=== PATIENT | male | born 1945 | race Caucasian/White ===

== ENCOUNTER → 2018-07-08 | Outpatient (CLI) | payer MEDICARE, BC ==
--- NOTE | 2018-07-09 09:50 | ECHOF ---
Referral Reason:I50.32 Chronic Diastolic (Congestive) Heart Failur MEASUREMENTS -------- HEIGHT: 175.3 cm WEIGHT: 131.5 kg BP: 135/77 RVIDd: 3.7 cm (< 3.3) IVSd: 1.4 cm (0.6 - 1.1) LVIDd: 3.3 cm (3.9 - 5.3) LVPWd: 1.5 cm (0.6 - 1.1) IVSs: 1.9 cm LVIDs: 2.1 cm LVPWs: 1.7 cm LA Diam: 4.0 cm (2.7 - 3.8) LAESV Index (A-L): 22.87 ml/m Ao Diam: 4.3 cm (2.0 - 3.7) AV Cusp: 1.9 cm (1.5 - 2.6) EPSS: 0.4 cm MV E Angel: 0.45 m/s MV DecT: 378 ms MV A Angel: 0.78 m/s MV E/A Ratio: 0.58 RAP: 5.00 mmHg RVSP: 22.74 mmHg MV EF SLOPE: 31.52 mm/s (70 - 150) MV EXCURSION: 1.07 cm (> 18.000) FINDINGS -------- Sinus rhythm. This was a technically difficult study with suboptimal views. The left ventricular size is normal. There is moderate concentric left ventricular hypertrophy. O verall left ventricular systolic function is normal with, an EF between 60 - 65 %. The right ventricle is mildly enlarged. Normal LA size by volume 22+/-6 ml/m2. The right atrium is normal in size. 5 ml of Lumason was utilized for enhancement of images. Aortic valve is trileaflet and is mildly thickened. The mitral valve is normal. Mild tricuspid regurgitation present. Right ventricular systolic pressure is normal at < 35 mmHg. The pulmonic valve was not well visualized. The aortic root is dilated measuring 4.3cm. IVC Not well visulized. There is no pericardial effusion. CONCLUSIONS -------- 1. Sinus rhythm. 2. This was a technically difficult study with suboptimal views. 3. The left ventricular size is normal. 4. There is moderate concentric left ventricular hypertrophy. 5. Overall left ventricular systolic function is normal with, an EF between 60 - 65 %. 6. The right ventricle is mildly enlarged. 7. Normal LA size by volume 22+/-6 ml/m2. 8. The right atrium is normal in size. 9. 5 ml of Lumason was utilized for enhancement of images. 10. Aortic valve is trileaflet and is mildly thickened. 11. The mitral valve is normal. 12. Mild tricuspid regurgitation present. 13. Right ventricular systolic pressure is normal at < 35 mmHg. 14. The pulmonic valve was not well visualized. 15. The aortic root is dilated measuring 4.3cm. 16. IVC Not well visulized. 17. There is no pericardial effusion. [employer]ARING [employer]ENT: Lisa Bowen RDCS
== END ==
LOC: RADECHMAIN 11:11
PROVIDERS: ATTEND Internal Medicine Geriatric Medicine
DX: I50.32 Chronic diastolic (congestive) heart failure (principal)
CPT/HCPCS: C8929; Q9950; 93306

== ENCOUNTER → 2018-12-08 | Outpatient (CLI) | payer MEDICARE, BC ==
--- NOTE | 2018-12-08 15:44 | CONS ---
CONSULTATION REASON FOR EVALUATION: Chronic hypersomnia. A 72-year-old male patient coming in with excessive tiredness and sleepiness during the day. He has been having difficulty in sleeping in bed. He goes to bed. However few hours after going to bed. He goes to a recliner in the living room and spends some time most of the night there. He is waking up on off in the middle of the night and utilize the bathroom a lot. He goes to bed. He wakes up. He wakes up from sleep at around 8:00 am he takes naps throughout the day. His sleep has become extremely fragmented. He is averaging around 7-8 hours of sleep. However despite that he is very much tired and sleepy and he has fallen asleep while driving. His [place] score is 18. He snores. He quits breathing. He is obese and has gained more than 50 pounds over the past 5 years. No restlessness lower extremities no depression no head trauma. No substance abuse. No grinding of the teeth. No sleepwalking or sleep talking. PAST MEDICAL HISTORY: Obesity diabetes mellitus, type 2. 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 SURGICAL HISTORY: Surgical history knee replacement, bilateral knee arthroscopy and rotator cuff surgery. DRUG ALLERGIES: Not known. OUTPATIENT MEDICATION LIST: Includes a K-Dur 20 mg daily Lasix 40 mg p.o. daily. Aspirin 325 a day. Mag citrate 5 mg p.o. daily Lipitor 40 daily Janumet tab a day. Procardia XL 30 daily losartan 25 daily Lantus insulin 70 units daily. SOCIAL HISTORY: Ex-smoker. No history of alcohol. No history of IV drugs. 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 FAMILY HISTORY: Father had diabetes mellitus and of complications of diabetes. Mother had CAD questionable cancer that she from an [place]. Family history is negative for sleep apnea. REVIEW OF SYSTEMS: A 14-point review of system was done. Positive for weight gain. He is a mouth breather. He has constant nasal plugging in conjunction, no grinding of the teeth. No he has nocturia wakes up with dry mouth. No palpitation no heartburn or chest pain. No shoulder or chest pain. No shortness of breath with activity. No dyspnea at rest. No orthopnea no paroxysmal nocturnal dyspnea. No leg swelling. No head trauma. No meningitis or encephalitis. 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 PHYSICAL EXAMINATION: BP is 142/74, pulse 97, respirations 16, temperature 97.8 saturation 95% on room air. Height is 5 feet 9 inches, weight is 300 and BMI is 40.7. [place] Score is at 18 neck size is 20 inches. GENERAL APPEARANCE: Obese, calm, comfortable. Head and neck normocephalic. NECK: Supple. Do note there is no JVD. No goiter neck mass. Mallampati class IV. LUNGS: Clear to auscultation. HEART: Heart sounds are regular rate and rhythm. Normal S1, S2. No murmurs. ABDOMEN: Soft, nontender. No organomegaly. EXTREMITIES: No edema. No cyanosis or clubbing. NEUROLOGIC: She is alert and oriented. No focal neurological deficits. PSYCHIATRIC: Negative for anxiety or depression. SKIN: negative for any wounds or ulceration. IMPRESSION: 1. Chronic hypersomnia [place] score of 18. #2 loud snoring. 2. Sleep fragmentation along with poor sleep hygiene measures. The patient is unable to sleep in bed and he is spending a lot of time in the living room on recliner. 3. Nocturia. 4. Obesity with a BMI of 48.7. 5. Diabetes mellitus type 2. 6. Hypertension. 7. History of cerebrovascular accident. 8. Hyperlipidemia. 9. History of non-Hodgkin's lymphoma. PLAN: High suspicion for obstructive sleep apnea would like to gradually transition patient back to bed. As he is spending lot of time sleeping and culture recliner in his living room. Would like to get a screening polysomnogram to assess the presence of obstructive sleep apnea and treating and treat him accordingly. I would like to encourage weight loss. I would like to implement good sleep hygiene measures and this was explained to him at length and he verbalized that he understood all these things discussed with him in terms of improving her sleep hygiene measures. We will continue to follow. dried. MMODL / IJN: [id number] /
== END | disposition home or self-care (01) ==
LOC: SLEEP 13:39
PROVIDERS: ATTEND Internal Medicine Critical Care Medicine
DX: G47.19 Other hypersomnia (principal); E66.9 Obesity, unspecified; E11.9 Type 2 diabetes mellitus without complications; I10 Essential (primary) hypertension; E78.5 Hyperlipidemia, unspecified; R35.1 Nocturia; Z68.42 Body mass index [BMI] 45.0-49.9, adult; Z86.73 Personal history of transient ischemic attack (TIA), and cerebral infarction without residual deficits; Z85.72 Personal history of non-Hodgkin lymphomas; Z87.891 Personal history of nicotine dependence; Z79.899 Other long term (current) drug therapy; Z79.82 Long term (current) use of aspirin; Z79.4 Long term (current) use of insulin
CPT/HCPCS: 99211

== ENCOUNTER → 2019-05-04 | Outpatient (CLI) | payer MEDICARE, BC ==
--- NOTE | 2019-05-04 17:33 | PN ---
PROGRESS NOTE This patient is coming in for a compliancy check regarding obstructive sleep apnea treatment. The patient is a 73-year-old male patient diagnosed having severe CIRILO with an AHI of 103. The patient was suffering from chronic hypersomnia and sleepiness and his initial [place] score was 18. I offered him CPAP therapy which is set at a pressure of 16 cm of water. On today's evaluation the patient is coming in for a compliancy check. Based on the data that was collected between 02/16/2019 and 03/17/2019, the patient has achieved more than 4 hours 97% of the time. The patient is averaging around 5 hours and 40 minutes of CPAP use per night. The AHI is down to 2.8 and the leak is only 8 L/minute. The patient is using a medium-sized Simplus full-face mask. This is considered to be an extremely successful treatment, and the patient is already feeling better. Sleep quality is improved. He is much more refreshed and alert during the day. He is known to have diabetes, hyperlipidemia and hypertension and previous history of CVA and lymphoma. PHYSICAL EXAMINATION: His current vital signs are as follows: Blood pressure is 143/76, pulse 70, respirations 18. [place] Score is 14. Temperature 97. Weight is 308. Saturation 93% on room air. GENERAL APPEARANCE: Obese, calm, comfortable. HEAD: Atraumatic, normocephalic. NECK: Supple. No JVD. No goiter or neck masses. Mallampati class IV. LUNGS: Clear to auscultation. HEART: Heart sounds are regular rate and rhythm. Normal S1, S2. No S3, S4. No murmurs. ABDOMEN: Soft, nontender. No organomegaly. EXTREMITIES: No edema. No cyanosis or clubbing. IMPRESSION: 1. Severe obstructive sleep apnea with an apnea/hypopnea index of 103, currently on CPAP at the pressure of 16 cm of water, with excellent clinical response and compliance. 2. Chronic hypersomnia, improving. [place] Score is lower. 3. Morbid obesity with a body mass index of 53. 4. Sleep fragmentation, improved with CPAP therapy. 5. Diabetes mellitus, type 2. 6. Hypertension. 7. Hyperlipidemia. 8. History of cerebrovascular accident with right-sided weakness. 9. Non-Hodgkin's lymphoma. 10.Severe peripheral limb movement activity. 11.Occasional PACs. PLAN: The patient was congratulated. Continue CPAP therapy at the same level of pressure, which is 16 cm of water. Keep the Simplus full-face mask. Compliance data was checked. The numbers look great; clinically benefitting from the treatment. Encourage weight loss. Implement good sleep hygiene measures. See me back in a year's time in followup, earlier if needed. 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 MMODL / IJN: [id number] /
== END | disposition home or self-care (01) ==
LOC: SLEEP 13:23
PROVIDERS: ATTEND Internal Medicine Critical Care Medicine
DX: G47.33 Obstructive sleep apnea (adult) (pediatric) (principal); G47.19 Other hypersomnia; E66.01 Morbid (severe) obesity due to excess calories; E11.9 Type 2 diabetes mellitus without complications; I10 Essential (primary) hypertension; E78.5 Hyperlipidemia, unspecified; C85.90 Non-Hodgkin lymphoma, unspecified, unspecified site; G47.69 Other sleep related movement disorders; Z99.89 Dependence on other enabling machines and devices; Z86.73 Personal history of transient ischemic attack (TIA), and cerebral infarction without residual deficits; Z68.43 Body mass index [BMI] 50.0-59.9, adult

== ENCOUNTER → 2020-04-26 | Outpatient (CLI) | payer MEDICARE, BC ==
[2020-04-26 19:21] LABS: Basophils # (A) 0.01 X 10*3/uL (0.00-0.10); Basophils % (A) 0.2 %; Eosinophils # (A) 0.01 X 10*3/uL (0.04-0.35); Eosinophils % (A) 0.2 %; HCT 42.4 % (39.6-50.0); HGB 13.5 g/dL (13.0-17.0); Lymphocytes # (A) 1.73 X 10*3/uL (0.90-5.00); Lymphocytes % (A) 40.4 %; MCH 29.9 pg (27.0-32.0); MCHC 31.8 g/dL (32.0-37.0); Mean Platelet Volume 10.6 fL (9.5-12.2); Monocytes # (A) 0.73 X 10*3/uL (0.20-1.00); Monocytes % (A) 17.1 %; Neutrophils # (A) 1.76 X 10*3/uL (1.80-7.70); Neutrophils % (A) 41.2 %; Platelet Count 200 X 10*3/uL (140-440); RBC 4.51 X 10*6/uL (4.40-5.60); RDW 15.9 % (11.5-14.5); WBC 4.28 X 10*3/uL (4.50-10.00)
[2020-04-26 21:13] LABS: African American GFR (CKD) 67.7 (60.0-200.0); Albumin 4.4 g/dL (3.80-4.90); Albumin/Globulin Ratio 2.1 (1.60-3.17); Anion Gap 9.4 mmol/L (4.00-12.00); BUN/Creat Ratio 20.83 Ratio (12.00-20.00); Calcium 8.5 mg/dL (8.7-10.3); Carbon Dioxide 25.6 mmol/L (21.6-31.8); Globulin 2.1 g/dL (1.6-3.3); Non-African American GFR(CKD) 58.4 (60.0-200.0); Potassium 4.4 mmol/L (3.5-5.5); Total Bilirubin 0.5 mg/dL (0.2-1.2); Total Protein 6.5 g/dL (6.2-8.2)
== END | disposition home or self-care (01) ==
LOC: LABWHC1 11:47
PROVIDERS: ATTEND Dermatology
DX: L30.9 Dermatitis, unspecified (principal)
CPT/HCPCS: 36415; 80053; 85025

== ENCOUNTER → 2020-06-12 | Outpatient (CLI) | payer MEDICARE, BC ==
[2020-06-12 19:18] LABS: Basophils # (A) 0.01 X 10*3/uL (0.00-0.10); Basophils % (A) 0.2 %; Eosinophils # (A) 0 X 10*3/uL (0.04-0.35); Eosinophils % (A) 0 %; HGB 13.6 g/dL (13.0-17.0); Lymphocytes # (A) 1.98 X 10*3/uL (0.90-5.00); Lymphocytes % (A) 41.8 %; MCH 30.2 pg (27.0-32.0); MCHC 32.4 g/dL (32.0-37.0); MCV 93.3 fL (80.0-97.0); Mean Platelet Volume 10.3 fL (9.5-12.2); Monocytes # (A) 0.61 X 10*3/uL (0.20-1.00); Monocytes % (A) 12.9 %; Neutrophils # (A) 2.12 X 10*3/uL (1.80-7.70); Neutrophils % (A) 44.7 %; Platelet Count 202 X 10*3/uL (140-440); RDW 15.1 % (11.5-14.5); WBC 4.74 X 10*3/uL (4.50-10.00)
[2020-06-12 19:23] LABS: African American GFR (CKD) 67.7 (60.0-200.0); Albumin 4.2 g/dL (3.80-4.90); Albumin/Globulin Ratio 1.83 (1.60-3.17); BUN/Creat Ratio 24.17 Ratio (12.00-20.00); Globulin 2.3 g/dL (1.6-3.3); Non-African American GFR(CKD) 58.4 (60.0-200.0); Potassium 4.3 mmol/L (3.5-5.5); Total Bilirubin 0.9 mg/dL (0.3-1.2); Total Protein 6.5 g/dL (6.2-8.2)
== END | disposition home or self-care (01) ==
LOC: LABWHC1 13:42
PROVIDERS: ATTEND Dermatology
DX: L30.1 Dyshidrosis [pompholyx] (principal); L20.89 Other atopic dermatitis; L85.3 Xerosis cutis; L29.8 Other pruritus; Z79.899 Other long term (current) drug therapy
CPT/HCPCS: 36415; 80053; 85025

== ENCOUNTER → 2020-07-11 | Outpatient (CLI) | payer MEDICARE, BC ==
[2020-07-11 19:05] LABS: Basophils # (A) 0 X 10*3/uL (0.00-0.10); Basophils % (A) 0 %; Eosinophils # (A) 0.01 X 10*3/uL (0.04-0.35); Eosinophils % (A) 0.2 %; HGB 13.3 g/dL (13.0-17.0); Lymphocytes # (A) 2.29 X 10*3/uL (0.90-5.00); Lymphocytes % (A) 40.8 %; MCH 30.4 pg (27.0-32.0); MCHC 32.4 g/dL (32.0-37.0); MCV 93.6 fL (80.0-97.0); Mean Platelet Volume 10.3 fL (9.5-12.2); Monocytes # (A) 0.44 X 10*3/uL (0.20-1.00); Monocytes % (A) 7.8 %; Neutrophils # (A) 2.85 X 10*3/uL (1.80-7.70); Neutrophils % (A) 50.8 %; Platelet Count 205 X 10*3/uL (140-440); RBC 4.38 X 10*6/uL (4.40-5.60); WBC 5.61 X 10*3/uL (4.50-10.00)
[2020-07-12 00:38] LABS: African American GFR (CKD) 61.4 (60.0-200.0); Albumin 4.4 g/dL (3.80-4.90); Albumin/Globulin Ratio 1.76 (1.60-3.17); Anion Gap 9.5 mmol/L (4.00-12.00); BUN/Creat Ratio 19.23 Ratio (12.00-20.00); Calcium 8.8 mg/dL (8.7-10.3); Carbon Dioxide 23.5 mmol/L (21.6-31.8); Globulin 2.5 g/dL (1.6-3.3); Potassium 4.4 mmol/L (3.5-5.5); Total Bilirubin 1.1 mg/dL (0.2-1.2); Total Protein 6.9 g/dL (6.2-8.2)
== END | disposition home or self-care (01) ==
LOC: LABWHC1 13:23
PROVIDERS: ATTEND Dermatology
DX: L30.1 Dyshidrosis [pompholyx] (principal)
CPT/HCPCS: 36415; 80053; 85025

== ENCOUNTER → 2021-05-29 | Outpatient (CLI) | payer MEDICARE, BC ==
--- NOTE | 2021-05-29 17:19 | P.PN ---
Subjective Progress Note Date: 05/29/21 75-year-old male patient is being seen in follow-up in the sleep center regarding obstructive sleep apnea. Patient is morbidly obese and is known to have severe CIRILO with an AHI of 103. The patient continues to be on a CPAP pressure of 16 cm of water. Note that over this past 3 years, the patient developed headaches and he was suspected to have temporal arteritis and the patient was started on steroids which cause significant amount of weight gain which she was able to lose a later stage. His weight remains stable at 207 pounds. Currently still on prednisone at 7.5 mg on a daily basis. He also also has history of diabetes mellitus. In terms of his sleep apnea, he is effectively treated and the patient remains on a CPAP pressure of 16 cm of water. I checked his machine. I checked his compliance data. Based on his compliance data,based on his compliance data, the patient has been averaging around 5.8 hours of CPAP use per night and his achieve more than 4 hours on the percent of the time. Leak is in order of 35 L per minute and his AHI is down to 1.2. The patient is using his Simplus fullface mask medium-sized. His leak is noted of 30 L per minute. No dryness in the mouth. He is waking up refreshed and alert during the day. No nighttime chest pain or shortness of breath. No palpitations. treatment remains successful for now. Objective - Exam blood pressure is 130/73 with a pulse of 95 and respiration of 20 with a temperature 96.7. Saturation 93% on room air oxygen. His weight is 307 pounds. [place] scores a 13. The patient appeared well nourished and normally developed. Vital signs as documented. Head exam is unremarkable. No scleral icterus or corneal arcus noted. Neck is without jugular venous distension, thyromegaly, or carotid bruits. Carotid upstrokes are brisk bilaterally. Lungs are clear to auscultation and percussion. Cardiac exam reveals the PMI to be normally sized and situated. Rhythm is regular. First and second heart sounds normal. No murmurs, rubs or gallops. Abdominal exam reveals normal bowel sounds, no masses, no organomegaly and no aortic enlargement. Extremities are nonedematous and both femoral and pedal pulses are normal.The patient appeared well nourished and normally d eveloped. Vital signs as documented. Head exam is unremarkable. No scleral icterus or corneal arcus noted. Neck is without jugular venous distension, thyromegaly, or carotid bruits. Carotid upstrokes are brisk bilaterally. Lungs are clear to auscultation and percussion. Cardiac exam reveals the PMI to be normally sized and situated. Rhythm is regular. First and second heart sounds normal. No murmurs, rubs or gallops. Abdominal exam reveals normal bowel sounds, no masses, no organomegaly and no aortic enlargement. Extremities are nonedematous and both femoral and pedal pulses are normal.Neurologically, the patient is awake and alert and the patient does not have any focal neurological deficit. Cranial nerves are essentially intact. 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 The patient was effectively treated with CPAP therapy. No need for a pressure adjustment. Encourage weight loss. Optimize sleep hygiene measures. Treat comorbidities. We'll continue to follow.
== END ==
LOC: SLEEP 15:48
PROVIDERS: ATTEND Internal Medicine Critical Care Medicine
DX: G47.33 Obstructive sleep apnea (adult) (pediatric) (principal); E66.01 Morbid (severe) obesity due to excess calories; E11.9 Type 2 diabetes mellitus without complications; I10 Essential (primary) hypertension; Z99.89 Dependence on other enabling machines and devices; E78.5 Hyperlipidemia, unspecified; R53.1 Weakness; Z86.73 Personal history of transient ischemic attack (TIA), and cerebral infarction without residual deficits; C85.90 Non-Hodgkin lymphoma, unspecified, unspecified site; Z68.43 Body mass index [BMI] 50.0-59.9, adult; I49.1 Atrial premature depolarization; Z87.2 Personal history of diseases of the skin and subcutaneous tissue

== ENCOUNTER → 2022-09-17 | Outpatient (CLI) | payer MEDICARE, BC ==
--- NOTE | 2022-09-17 13:39 | P.PN ---
Progress Note - Text Progress Note Date: 09/17/22 This is a 76-year-old male patient was coming in for an annual checkup regarding his obstructive sleep apnea. The patient has severe CIRILO with an AHI of 103. The patient remains on CPAP therapy at a pressure of 16 cm of water. He is doing extremely well. He continues to be successful treated with CPAP therapy and the patient denies having any major hypersomnia or sleepiness during the day. He occasionally takes naps. He is able to drive long distances without having to fall asleep. His sleep quality is adequate. He is not waking up frequently in the middle of the night due to choking or gasping in his snoring is completely subsided. The patient continues to carry the same weight of 207 pounds. He has been using the CPAP machine every night. His compliance is at 100%. Compliancy for more than 4 hours is 27/30 and the patient is averaging around 5 hours of CPAP use per night. His leak is in order of 47 L/m and the patient is using his simplus medium-size fullface mask. His AHI while in treatment is down to 1.3. He has no other new complaints otherwise. His comorbid conditions include eczema. Patient is taken Dupixent injections in his skin has improved. He has also diabetes mellitus type 2, hypertension hyperlipidemia and previous history of CVA. He does have some residual right- sided weakness. He also has history of non-Hodgkin's lymphoma. No chest pain. No shortness of breath. No other new complaints otherwise for now His blood pressure is 123/64 with a pulse of 89 and a respiration of 12 and the temperature is 96.9F. Pulse ox is 92% on room air oxygen. Medications include potassium supplements 20 mEq daily, metformin 1 g twice a day, Lasix 60 mg by mouth daily, nifedipine 30 mg by mouth daily, Lipitor 40 mg by mouth daily, losartan 25 mg 1 times a day, Lantus insulin 8 units daily, Dupixent injections every 2 weeks, aspirin 325 mg by mouth daily and Trulicity 3 mg every week. Gen. appearance, the patient is obese, calm and comfortable, not in acute distress The patient appeared well nourished and normally developed. Vital signs as documented. Head exam is unremarkable. No scleral icterus or corneal arcus noted. Neck is without jugular venous distension, thyromegaly, or carotid bruits. Carotid upstrokes are brisk bilaterally. Lungs are clear to auscultation and percussion. Cardiac exam reveals the PMI to be normally sized and situated. Rhythm is regular. First and second heart sounds normal. No murmurs, rubs or gallops. Abdominal exam reveals normal bowel sounds, no masses, no organomegaly and no aortic enlargement. Extremities are nonedematous and both femoral and pedal pulses are normal.The patient appeared well nourished and normally developed. Vital signs as documented. Head exam is unremarkable. No scleral icterus or corneal arcus noted. Neck is without jugular venous distension, thyromegaly, or carotid bruits. Carotid upstrokes are brisk bilaterally. Lungs are clear to auscultation and percussion. Cardiac exam reveals the PMI to be normally sized and situated. Rhythm is regular. First and second heart sounds normal. No murmurs, rubs or gallops. Abdominal exam reveals normal bowel sounds, no masses, no organomegaly and no aortic enlargement. Extremities are nonedematous and both femoral and pedal pulses are normal.Neurologically, the patient is awake and alert and the patient does not have any focal neurological deficit. Cranial nerves are essentially intact. Assessment 1 severe CIRILO with an AHI of 103, successful treated with a CPAP pressure of 16 cm of water, particularly successful the patient has no specific complaints. Machine is functional and the patient has demonstrated excellent currently response and compliancy. His current [place] score is at 13. 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 The patient was effectively treated with CPAP therapy. No need for a pressure adjustment. Encourage weight loss. Optimize sleep hygiene measures. Treat comorbidities. We'll continue to follow.
== END | disposition home or self-care (01) ==
LOC: 3 N SLEEP 12:58
PROVIDERS: ATTEND Internal Medicine Critical Care Medicine
DX: G47.33 Obstructive sleep apnea (adult) (pediatric) (principal); E78.5 Hyperlipidemia, unspecified; I10 Essential (primary) hypertension; E66.01 Morbid (severe) obesity due to excess calories; E11.9 Type 2 diabetes mellitus without complications; I69.351 Hemiplegia and hemiparesis following cerebral infarction affecting right dominant side; L30.9 Dermatitis, unspecified; C85.90 Non-Hodgkin lymphoma, unspecified, unspecified site; I49.3 Ventricular premature depolarization; Z79.4 Long term (current) use of insulin; Z99.89 Dependence on other enabling machines and devices; Z79.84 Long term (current) use of oral hypoglycemic drugs; Z68.43 Body mass index [BMI] 50.0-59.9, adult; Z79.85 Long-term (current) use of injectable non-insulin antidiabetic drugs; Z87.2 Personal history of diseases of the skin and subcutaneous tissue
CPT/HCPCS: 99212

== ENCOUNTER → 2024-08-17 | Outpatient (CLI) | payer MEDICARE, BC ==
[2024-08-17 15:59] VITALS: BP 108/66; PULSE 69; RESP 16; TEMP 97.9
--- NOTE | 2024-08-17 16:24 | P.PN ---
Subjective Progress Note Date: 08/17/24 This is a very pleasant 78-year-old male patient was coming in for a follow-up regarding his obstructive sleep apnea. The patient was diagnosed having severe CIRILO with an AHI of 103 and the patient has been successfully treated with a CPAP pressure of 16 cm of water. The patient continues to be extremely compliant with CPAP therapy. His machine is functional patient is using his machine every night without any major issues and the patient has no symptoms of hypersomnia or sleepiness during the day. He does not take any naps during the day. He goes to bed at around midnight and he gets out of bed 7:00 in the morning. He is able to drive long distances without having to fall asleep. No cardiovascular complications. No cardiac arrhythmias. No reported atrial fibrillation. He has had a previous history of CVA and he has chronic stable right-sided residual weakness. He also has eczema maintained on Dupixent and he has psoriasis. Other comorbidities include hypertension, hyperlipidemia, diabetes mellitus type 2. He was ruled out having temporal arteritis and the patient is not receiving any steroids. He has lost weight. Back in 2022, he used to weigh 307 pounds and his current weight is down to 257. His body mass index is 42. His [place] score is at 8. Medication list includes potassium 20 mEq daily, Lasix 60 mg p.o. daily, Lipitor 40 mg p.o. daily, losartan 100 mg p.o. daily, Trulicity 4 mg every week, Lantus insulin 8 units daily, Dupixent shots every 2 weeks, aspirin 325 mg p.o. daily, magnesium citrate 400 mg p.o. daily and allopurinol 300 mg p.o. daily. I checked his compliance data from his machine. Based on 30-day compliancy, the patient has utilized his machine every night and is achieved more than 4 hours of usage 100% of the time. Has been averaging around 6.3 hours of CPAP use per night. He is using his Simplus medium size fullface mask. Leak is in the order of 77 L/min and his AHI is down to 0.5 indicating excellent usage and excellent clinical response BP is 108/66 with a pulse of 69 and respiration of 16. Weight is down to 257 pounds and his BMI is 42 and temperature is 97.9. Pulse ox 95% on room air oxygen. The patient appeared well nourished and normally developed. Vital signs as documented. Head exam is unremarkable. No scleral icterus or corneal arcus noted. Neck is without jugular venous distension, thyromegaly, or carotid bruits. Carotid upstrokes are brisk bilaterally. Lungs are clear to auscultation and percussion. Cardiac exam reveals the PMI to be normally sized and situated. Rhythm is regular. First and second heart sounds normal. No murmurs, rubs or gallops. Abdominal exam reveals normal bowel sounds, no masses, no organomegaly and no aortic enlargement. Extremities are nonedematous and both femoral and pedal pulses are normal. Examination of the skin revealed no evidence of significant rashes, suspicious appearing nevi or other concerning lesions. Neurologically, the patient is awake and alert and the patient does not have any focal neurological deficit. Cranial nerves are essentially intact. Assessment Severe symptomatic obstructive sleep apnea with an AHI of 103. The patient continues to receive successful CPAP therapy at a pressure of 16 cm of water. No reported hypersomnia or sleepiness and treatment is extremely successful with excellent compliancy. No new onset comorbidities over the past 2 years and the patient has lost considerable mount of weight Hypersomnia, improved with CPAP therapy Obesity, losing weight, currently off steroids and his weight is down to 257 with a body mass index of 42 Diabetes mellitus type 2 maintained on Lantus and Trulicity Hypertension Hyperlipidemia CVA with some residual right-sided weakness Non-Hodgkin's lymphoma Psoriasis Severe eczema maintained on Dupixent Plan Continue CPAP therapy at the same level of pressure. Encouraged further weight loss Refill supplies including a medium size Simplus fullface mask, tubing and filters No need for any pressure adjustments Maintain good sleep hygiene measures Maintain regular sleep schedule Machine is functional there is no need for an update and the patient will see back in a follow-up in a year time. No other issues for now. Objective - Vital Signs Vital signs: Vital Signs Temp 97.9 F 08/17/24 15:57 Pulse 69 08/17/24 15:57 Resp 16 08/17/24 15:57 BP 108/66 08/17/24 15:57 Pulse Ox 95 08/17/24 15:57 FiO2 Intake & Output 08/16/24 08/17/24 08/17/24 18:59 06:59 18:59 Weight 116.687 kg
== END ==
LOC: 3 N SLEEP 15:39
PROVIDERS: ATTEND Internal Medicine Critical Care Medicine
DX: G47.33 Obstructive sleep apnea (adult) (pediatric) (principal); E66.9 Obesity, unspecified; E11.9 Type 2 diabetes mellitus without complications; E78.5 Hyperlipidemia, unspecified; I10 Essential (primary) hypertension; I69.351 Hemiplegia and hemiparesis following cerebral infarction affecting right dominant side; L30.9 Dermatitis, unspecified; L40.9 Psoriasis, unspecified; C85.9A Non-Hodgkin lymphoma, unspecified, in remission; Z68.41 Body mass index [BMI] 40.0-44.9, adult; Z99.89 Dependence on other enabling machines and devices
CPT/HCPCS: 99212